=== PATIENT | male | born 1985 | race Caucasian/White ===

== ENCOUNTER 2024-08-07 05:14 | Emergency (ER) | payer SELFPAY ==
[~2024-08-07] VITALS: Ht 177.8 cm; Wt 72.6 kg
[2024-08-07 05:40] VITALS: PULSE 85; RESP 17; TEMP 97.9
[2024-08-07] MEDS: ACETAMINOPHEN 325 MG TAB PO STA (05:50)
[2024-08-07] MEDS ORDERED: PREDNISONE20 MG PO (06:06)
[2024-08-07] MEDS ORDERED: KETOROLAC TROME10 MG PO (06:06)
[2024-08-07 06:07] LABS: INFLUENZA A AG NEGATIVE (NEGATIVE)
[2024-08-07 06:08] LABS: CORONAVIRUS COVID-19 AG NEGATIVE (NEGATIVE); INFLUENZA B AG NEGATIVE (NEGATIVE)
[2024-08-07 06:14] VITALS: BP 109/57; PULSE 70; RESP 18; TEMP 97.8; O2SAT 100
== END 2024-08-07 06:25 | disposition home or self-care (01) ==
LOC: ER 05:20
DX: R51.9 Headache, unspecified (principal); R07.89 Other chest pain; R05.9 Cough, unspecified; H53.8 Other visual disturbances; R53.81 Other malaise; Z11.52 Encounter for screening for COVID-19; F17.210 Nicotine dependence, cigarettes, uncomplicated
CPT/HCPCS: 93005; 99283